=== PATIENT | male | born 1970 | race Caucasian/White ===

== ENCOUNTER 2025-10-07 19:28 | Observation (INO) ==
[2025-10-07] MEDS: ONDANSETRON INJ 2 MG/ML 2 ML VIAL IV STA (20:02)
[2025-10-07] MEDS: SODIUM CHLORIDE 0.9% 1,000 ML IV ONE (20:02)
[2025-10-07 20:07] LABS: Hematocrit (blood only) 46.5 % (42.0-52.0); Hemoglobin 16.3 g/dL (14.0-18.0); Mean Corpuscular Hemoglobin 29.7 pg (25.0-34.0); Mean Corpuscular Volume 84.9 fL (80.0-100.0); Platelet Count 364 K/uL (130-400); RDW Standard Deviation 38.8 fL (36.4-46.3); Red Blood Count 5.48 M/uL (4.70-6.10); White Blood Count 16.69 K/ul (4.8-10.8)
--- NOTE | 2025-10-07 20:26 | Emergency Department Note ---
History of Present Illness General Chief complaint: Abdominal Pain Stated complaint: ABD PAIN/MALAISE/EMESIS/TACHACARD Time Seen by Provider: 10/07/25 19:46 History of Present Illness Provider Complaint: + nausea, + vomiting, + diarrhea and + abdominal pain Onset (ago): day(s) 1 Description of Vomiting: + food contents; no blood-streaked, no bloody or no coffee grounds Description of Diarrhea: no mucousy, no tarry, no blood-streaked or no bloody (bright red) Associated Abdominal Pain: Yes Location of pain: + diffuse Maximum Pain Intensity: 6 Current Pain Intensity: 6 Quality: + cramping, + stabbing and + sharp Pain Consistency: + intermittent Relieved By: + none Exacerbated By: + vomiting Context: no possible food poisoning, no recent antibiotic use, no recent surgery/procedure, no alcohol abuse, no trauma, no NSAID use, no smoking or no marijuana use Associated symptoms: no chest pain, no cough, no diaphoresis, no fever/chills, no headaches, no dysuria, no shortness of breath or no syncope Home Medications Medication Instructions Recorded Confirmed Type dextroamphetamine sulfate 10 mg 20 - 30 mg PO DAILY 10/07/25 10/07/25 History tablet loratadine 10 mg tablet (Claritin) 10 mg PO DAILY 10/07/25 10/07/25 History multivitamin 1 tab PO DAILY 10/07/25 10/07/25 History Allergies Allergy/AdvReac Type Severity Reaction Status Date / Time No Known Allergies Allergy Verified 10/07/25 22:36 Past Med/Surg History Problem List (Updated 10/07/25 @ 23:25 by David Mccann MD) Brugada 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 (Acute) Nausea vomiting and diarrhea (Acute) Social History Smoking Status: Former smoker Preferred Language: Slovak Feels Safe at Home: Yes Physical Exam 2 Vital Signs: Vital Signs - 24 hr 10/07/25 19:32 10/07/25 19:55 10/07/25 20:14 Temperature 36.9 C Temperature Source Temporal Artery Sc an Pulse Rate 132 H 123 H Pulse Rate [Apical ] 120 H Pulse Rhythm Pulse Rhythm [Apic al] Regular Pulse Strength [Ap ical] Normal Respiratory Rate 19 24 Respiratory Effort / Characteristics Non-Labored Sponta neous Non-Labored Respiratory Depth Normal Normal Respiratory Patter n Regular Blood Pressure 147/95 H Blood Pressure [Ri ght Arm] 177/116 H Blood Pressure Lora n 112 Blood Pressure Lora n [Right Arm] 136 Blood Pressure Pos ition [Right Arm] Lying Pulse Oximetry 95 96 Oxygen Delivery Me thod Room Air Room Air Sepsis Recent Feve r Within 48 Hours No Sepsis New/Unexpla ined Change in Men justus Status N/A Sepsis Action Take n by Nursing No Action Required 10/07/25 20:14 10/07/25 22:19 Temperature Temperature Source Pulse Rate 120 H Pulse Rate [Apical ] 104 H Pulse Rhythm Regular Pulse Rhythm [Apic al] Regular Pulse Strength [Ap ical] Normal Respiratory Rate 24 19 Respiratory Effort / Characteristics Non-Labored Respiratory Depth Normal Respiratory Patter n Regular Blood Pressure Blood Pressure [Ri ght Arm] 145/84 H Blood Pressure Lora n Blood Pressure Lora n [Right Arm] 104 Blood Pressure Pos ition [Right Arm] Lying Pulse Oximetry 96 98 Oxygen Delivery Me thod Room Air Room Air Sepsis Recent Feve r Within 48 Hours Sepsis New/Unexpla ined Change in Men justus Status Sepsis Action Take n by Nursing Physical Exam: Physical Exam GENERAL: oriented to person, place, and time. appears well-developed and well- nourished. She does not appear distressed. HENT: Exam performed. -Head: Normocephalic and atraumatic. -Right Ear: External ear normal. No mastoid erythema -Left Ear: External ear normal. No mastoid erythema -Mouth/Throat: The oropharynx is clear and moist. No trismus in the jaw. No dental abscesses or uvula swelling. No oropharyngeal exudate or tonsillar abscesses. EYES: Conjunctivae and EOM are normal.Right eye exhibits no discharge. Left eye exhibits no discharge. No scleral icterus. NECK: Normal range of motion. Neck supple. No JVD present. No tracheal deviation and normal range of motion present. CV: Tachycardic rate, regular rhythm, normal heart sounds and intact distal pulses. There is no peripheral edema. Palpable radial pulses bue. PULM/CHEST: Effort normal and breath sounds normal. No respiratory distress. No stridor. no wheezes.no rales. -Chest Wall: no tenderness to palpation ABD: The abdomen is soft. Bowel sounds are normal. no distension. No mass is present. There is tenderness to palpation of the right upper quadrant and epigastric area. There is no rebound, no guarding, no Mclean's sign and no tenderness at McBurney's point. Rovsig negative MUSC/SKEL: Normal range of motion. There is no peripheral edema, tenderness or deformity. NEURO: Motor and sensation grossly intact. SKIN: Skin is warm and dry. not diaphoretic. PSYCH: normal mood and affect. Behavior is normal. Judgment and thought content normal. Course Course 1945: The patient was evaluated in room B4. A complete history and physical exam was performed Cardiac monitoring: An order was placed for continuous cardiac monitoring. The monitor shows a rate of 120 with sinus tachycardia rhythm interpreted by md 2140: Patient noemi tachycardic. White blood cell count 16.69. Otherwise unremarkable. CT abdomen pelvis shows findings diarrheal illness/enteritis. Strangely the patient's EKG demonstrated a Brugada pattern. Patient had a syncopal episode. Patient is here visiting from [place]. Patient still having a lot of nausea. Patient be admitted for IV fluids and antibiotics if needed and possible evaluation by cardiology. Patient stool culture is still pending. Administered Medications Sodium Chloride (Nss) 1,000 mls @ 125 mls/hr IV .Q8H ELIZ Stop: 10/10/25 21:59 Last Admin: 10/07/25 22:26 Dose: 125 mls/hr Documented By: ludwin Discontinued Medications Sodium Chloride (Nss) 1,000 mls @ 999 mls/hr IV .Q1H1M ONE Stop: 10/07/25 20:57 Last Infusion: 10/07/25 21:04 Dose: Infused Documented By: ludwin Admin: 10/07/25 20:02 Dose: 999 mls/hr Documented By: ludwin Ioversol (Optiray 320 100ml) 90 ml IV ONCE ONE Stop: 10/07/25 20:37 Last Admin: 10/07/25 20:36 Dose: 90 ml Documented By: DENIZ Ondansetron HCl (Ondansetron Inj 2 Mg/Ml 2 Ml Vial) 4 mg IV NOW STA Stop: 10/07/25 19:58 Last Admin: 10/07/25 20:02 Dose: 4 mg Documented By: ludwin Medical Decision Making Laboratory Data Attestation: I reviewed the patient's lab results. 10/07/25 19:52 10/07/25 19:52 Lab Results 10/07/25 10/07/25 Range/Units 19:46 19:52 WBC 16.69 H (4.8-10.8) K/ul RBC 5.48 (4.70-6.10) M/uL Hgb 16.3 (14.0-18.0) g/dL Hct 46.5 (42.0-52.0) % MCV 84.9 (80.0-100.0) fL MCH 29.7 (25.0-34.0) pg MCHC 35.1 (32.0-36.0) g/dL RDW Std Deviation 38.8 (36.4-46.3) fL RDW Coeff of Rubia 12.7 (11.5-14.5) % Plt Count 364 (130-400) K/uL MPV 8.7 L (9.4-12.4) fL Immature Gran % (Auto) 0.3 % Neut % (Auto) 91.1 % Lymph % (Auto) 4.3 % Charlton % (Auto) 3.5 % Eos % (Auto) 0.4 % Baso % (Auto) 0.4 % Neut # (Auto) 15.21 H (1.40-6.50) K/uL Lymph # (Auto) 0.72 L (1.20-3.40) K/uL Charlton # (Auto) 0.59 (0.11-0.59) K/uL Eos # (Auto) 0.06 (0.00-0.50) K/uL Baso # (Auto) 0.06 (0.00-0.20) K/uL Immature Gran # (Auto) 0.05 (0.01-0.20) K/uL PT 11.1 (9.0-12.0) Seconds INR 1.1 (0.9-1.1) APTT 30 (21-31) Seconds PTT Ratio 1.1 Sodium 137 (136-145) mmol/L Potassium 4.1 (3.5-5.1) mmol/L Chloride 104 (98-107) mmol/L Carbon Dioxide 22 (21-32) mmol/L Anion Gap 11 (3-11) BUN 16 (6-23) mg/dl Creatinine 0.87 (0.6-1.4) mg/dl Est Cr Clr Drug Dosing 119.8 ml/min eGFR 103.18 BUN/Creatinine Ratio 18.4 (10-20) Glucose 139 H (70-99(Fasting)) mg/dl Calcium 9.7 (8.6-10.3) mg/dl Total Bilirubin 1.0 (0.2-1.0) mg/dl Direct Bilirubin 0.2 (0-0.2) mg/dl AST 24 (13-39) U/L ALT 28 (7-52) U/L Alkaline Phosphatase 62 (34-104) U/L Troponin I High Sens 4.0 (0-20) pg/ml Total Protein 7.9 (6.0-8.3) gm/dl Albumin 4.6 (3.4-5.0) gm/dl Lipase 30 (11-82) U/L Urine Color Yellow Urine Appearance Clear (Clear) Urine pH 6.0 (4.5-7.5) Ur Specific Rupert 1.027 (1.000-1.030) Urine Protein Trace H (Negative) Urine Glucose (UA) Negative (Negative) Urine Ketones 2+ H (Negative) Urine Blood Negative (Negative) Urine Nitrite Negative (Negative) Urine Bilirubin Negative (Negative) Urine Urobilinogen Negative (Negative) Ur Leukocyte Esterase Negative (Negative) Urine WBC (Auto) 0-5 (0-5) /hpf Urine RBC (Auto) 0-2 (0-2) /hpf U Hyaline Cast (Auto) 0-2 (0-2) /lpf U Epithel Cells (Auto) 0-2 (0-2) /hpf Urine Bacteria (Auto) None Seen (None Seen) Urine Comment Imaging Data Attestation: I personally reviewed and interpreted this imaging study as follows: My Impression: Chest x-ray negative. Airway clear. No pneumothorax. No consolidation. No cardiomegaly or cephalization.. No free air under the diaphragm. No fractures of the skeletal structures. Radiologist's Impression: Abdomen/Pelvis CT 10/07/25 19:57 Exam(s): CT ABDOMEN + PELVIS With Contrast IV Amt: 90 ml optiray 320 EXAM: CT Abdomen and Pelvis With Intravenous Contrast CLINICAL HISTORY: Reason for exam: epigastric pain. TECHNIQUE: Axial computed tomography images of the abdomen and pelvis with intravenous contrast. CTDI is 27.57 mGy and DLP is 1551.89 mGy-cm. Automated exposure control was utilized for the study. A dose lowering technique was utilized adhering to the principles of ALARA. CONTRAST: Patient received 90 ml optiray 320 of IV contrast COMPARISON: None FINDINGS: Lung bases: Unremarkable. No mass. No consolidation. ABDOMEN: Liver: Hepatic steatosis. Gallbladder and bile ducts: Unremarkable. No calcified stones. No ductal dilation. Pancreas: Unremarkable. No mass. No ductal dilation. Spleen: Unremarkable. No splenomegaly. Adrenals: Unremarkable. No mass. Kidneys and ureters: Left renal cyst. No further follow up necessary. No hydronephrosis or obstructing ureteral stone. Stomach and bowel: Fluid and gas filled small bowel loops may represent enteritis in the appropriate clinical setting. Evaluation of the stomach is limited by underdistention. Fluid in the colon is suggestive of diarrheal state. PELVIS: Appendix: Normal appendix. Bladder: Prominence of the bladder wall is nonspecific. Please correlate with urinalysis to evaluate for cystitis. Reproductive: Mild calcifications in the prostate. ABDOMEN and PELVIS: Intraperitoneal space: Unremarkable. No free air. No significant fluid collection. Bones/joints: Degenerative changes of the spine. No acute fracture. No dislocation. Soft tissues: Unremarkable. Vasculature: Unremarkable. No abdominal aortic aneurysm. Lymph nodes: Unremarkable. No enlarged lymph nodes. IMPRESSION: 1. Fluid and gas filled small bowel loops may represent enteritis in the appropriate clinical setting. 2. Fluid in the colon is suggestive of diarrheal state. 3. Prominence of the bladder wall is nonspecific. Please correlate with urinalysis to evaluate for cystitis. Electronically signed by: Deja Salguero M.D. 10/07/25 21:22 PM Chest X-Ray 10/07/25 19:57 Exam(s): XR CXR 1 VIEW EXAM: XR Chest, 1 View CLINICAL HISTORY: Reason for exam: epigastric pain. TECHNIQUE: Frontal view of the chest. COMPARISON: No relevant prior studies available. FINDINGS: Lungs: Mild to moderate peribronchial thickening of the central bronchi. No consolidation. Pleural space: Unremarkable. No pneumothorax. Heart: Unremarkable. No cardiomegaly. Mediastinum: Unremarkable. Normal mediastinal contour. Bones/joints: Unremarkable. No acute fracture. IMPRESSION: Bronchitis, which may be of infectious or inflammatory etiologies. No consolidation or pleural effusion. Electronically signed by: Paz Lozano MD 10/07/25 21:20 PM ECG Data Attestation: I personally reviewed and interpreted this ECG as follows: Additional Comments: Sinus rhythm with rate of 127. MI 160 QRS [address] elevation or ST depression. Brugada pattern present. [facility] Narrative 1945: The patient was evaluated in room B4. A complete history and physical exam was performed Cardiac monitoring: An order was placed for continuous cardiac monitoring. The monitor shows a rate of 120 with sinus tachycardia rhythm interpreted by me 2140: Patient noemi tachycardic. White blood cell count 16.69. Otherwise unremarkable. CT abdomen pelvis shows findings diarrheal illness/enteritis. Strangely the patient's EKG demonstrated a Brugada pattern. Patient had a syncopal episode. Patient is here visiting from [place]. Patient still having a lot of nausea. Patient be admitted for IV fluids and antibiotics if needed and possible evaluation by cardiology. Patient stool culture is still pending. 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 multivitamin [Multiple Vitamin] Tablet 1 tab PO DAILY loratadine [Claritin] 10 mg Tablet 10 mg PO DAILY Referrals Referrals: PCP,NO [Physician] -
[2025-10-07 20:28] LABS: Alanine Aminotransferase 28.0 U/L (7-52); Albumin Level 4.6 gm/dl (3.4-5.0); Alkaline Phosphatase 62.0 U/L (34-104); Anion Gap 11.0 (3-11); Bilirubin,Total 1.0 mg/dl (0.2-1.0); Blood Urea Nitrogen 16.0 mg/dl (6-23); Calcium 9.7 mg/dl (8.6-10.3); Carbon Dioxide 22.0 mmol/L (21-32); Chloride 104.0 mmol/L (98-107); Creatinine Clr Calc Pharmacy 119.8 ml/min; Glucose 139.0 mg/dl (70-99(Fasting)); Immature Granulocytes # (auto) 0.05 K/uL (0.01-0.20); Immature Granulocytes % (auto) 0.3 %; Lipase 30.0 U/L (11-82); Potassium 4.1 mmol/L (3.5-5.1); Sodium 137.0 mmol/L (136-145); Total Protein 7.9 gm/dl (6.0-8.3)
[2025-10-07 20:36] LABS: Appearance Urine Clear (Clear); Bacteria Urine Automated None Seen (None Seen); Cast Urine Automated 0-2 /lpf (0-2); Epithelial Cell Urine Auto 0-2 /hpf (0-2); Glucose Urine UA Negative (Negative); RBC Urine Automated 0-2 /hpf (0-2); WBC Urine Automated 0-5 /hpf (0-5)
[2025-10-07] MEDS: OPTIRAY 320 100ml IV ONE (20:36)
[2025-10-07 20:40] LABS: INR 1.1 (0.9-1.1); Partial Thromboplastin Time 30 Seconds (21-31); Prothrombin Time 11.1 Seconds (9.0-12.0)
--- NOTE | 2025-10-07 21:20 | XRay Report ---
Exam(s): XR CXR 1 VIEW EXAM: XR Chest, 1 View CLINICAL HISTORY: Reason for exam: epigastric pain. TECHNIQUE: Frontal view of the chest. COMPARISON: No relevant prior studies available. FINDINGS: Lungs: Mild to moderate peribronchial thickening of the central bronchi. No consolidation. Pleural space: Unremarkable. No pneumothorax. Heart: Unremarkable. No cardiomegaly. Mediastinum: Unremarkable. Normal mediastinal contour. Bones/joints: Unremarkable. No acute fracture. IMPRESSION: Bronchitis, which may be of infectious or inflammatory etiologies. No consolidation or pleural effusion. Electronically signed by: Paz Lozano MD 10/07/25 21:20 PM
--- NOTE | 2025-10-07 21:23 | CT Scan Report ---
Exam(s): CT ABDOMEN + PELVIS With Contrast IV Amt: 90 ml optiray 320 EXAM: CT Abdomen and Pelvis With Intravenous Contrast CLINICAL HISTORY: Reason for exam: epigastric pain. TECHNIQUE: Axial computed tomography images of the abdomen and pelvis with intravenous contrast. CTDI is 27.57 mGy and DLP is 1551.89 mGy-cm. Automated exposure control was utilized for the study. A dose lowering technique was utilized adhering to the principles of ALARA. CONTRAST: Patient received 90 ml optiray 320 of IV contrast COMPARISON: None FINDINGS: Lung bases: Unremarkable. No mass. No consolidation. ABDOMEN: Liver: Hepatic steatosis. Gallbladder and bile ducts: Unremarkable. No calcified stones. No ductal dilation. Pancreas: Unremarkable. No mass. No ductal dilation. Spleen: Unremarkable. No splenomegaly. Adrenals: Unremarkable. No mass. Kidneys and ureters: Left renal cyst. No further follow up necessary. No hydronephrosis or obstructing ureteral stone. Stomach and bowel: Fluid and gas filled small bowel loops may represent enteritis in the appropriate clinical setting. Evaluation of the stomach is limited by underdistention. Fluid in the colon is suggestive of diarrheal state. PELVIS: Appendix: Normal appendix. Bladder: Prominence of the bladder wall is nonspecific. Please correlate with urinalysis to evaluate for cystitis. Reproductive: Mild calcifications in the prostate. ABDOMEN and PELVIS: Intraperitoneal space: Unremarkable. No free air. No significant fluid collection. Bones/joints: Degenerative changes of the spine. No acute fracture. No dislocation. Soft tissues: Unremarkable. Vasculature: Unremarkable. No abdominal aortic aneurysm. Lymph nodes: Unremarkable. No enlarged lymph nodes. IMPRESSION: 1. Fluid and gas filled small bowel loops may represent enteritis in the appropriate clinical setting. 2. Fluid in the colon is suggestive of diarrheal state. 3. Prominence of the bladder wall is nonspecific. Please correlate with urinalysis to evaluate for cystitis. Electronically signed by: Deja Salguero M.D. 10/07/25 21:22 PM
[2025-10-07] MEDS: SODIUM CHLORIDE 0.9% 1,000 ML IV SCH (22:26)
--- NOTE | 2025-10-07 23:56 | History & Physical Report ---
Date of Service October 07, 2025 Assessment & Plan (1) Brugada 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: Plan: 55-year-old male who is from [place] visiting [place] for daughter's graduation with past medical history significant for ADHD comes because of nausea vomiting and abdominal pain. Patient states since morning started to have a lot of nausea and vomiting which progressively got worse and was having significant abdominal pain which prompted him to come to the ER. He had a couple of episode of small amounts of diarrhea. Currently abdominal pain is improving. Denies any fevers. No chest pain or shortness of breath. Has some headache. No dizziness. No runny nose or sore throat. No cough. Micturating okay. Blood pressure somewhat high in the ER. Patient says usually his blood pressure is in 130/80 range. Currently resting comfortably. Brugada pattern on ECG Asymptomatic Troponin negative Electrolytes okay Will monitor on telemetry Will follow repeat labs and troponin Echocardiogram Consult cardio for further recommendations Nausea vomiting diarrhea CT scan showing enteritis N.p.o. for now IV fluids Antiemetics as needed Bronchitis chest x-ray Will monitor consider Doxycycline ADHD On Adderall DVT prophylaxis SCDs for now Disposition Telemetry Full code History of Present Illness Chief Complaint: Nausea vomiting and abdominal pain Primary Care Provider: MAINE WOLF 55-year-old male who is from [place] visiting [employer] for daughter's graduation with past medical history significant for ADHD comes because of nausea vomiting and abdominal pain. Patient states since morning started to have a lot of nausea and vomiting which progressively got worse and was having significant abdominal pain which prompted him to come to the ER. He had a couple of episode of small amounts of diarrhea. Currently abdominal pain is improving. Denies any fevers. No chest pain or shortness of breath. Has some headache. No dizziness. No runny nose or sore throat. No cough. Micturating okay. Blood pressure somewhat high in the ER. Patient says usually his blood pressure is in 130/80 range. Currently resting comfortably. Past medical history. As mentioned above. Past surgical history. Right distal biceps tendon repair Social history. Quit smoking 2003. Smoked 1 to 2 packs a day for 18 years. Currently no alcohol use. Sometimes uses Gummies. Family history. Diabetes in the family. Grandfather had colon cancer. Aunt had glioblastoma. Father had liver cancer and Alzheimer's dementia. Allergies Allergy/AdvReac Type Severity Reaction Status Date / Time No Known Allergies Allergy Verified 10/07/25 22:36 Home Medications Medication Instructions Recorded Confirmed Type dextroamphetamine sulfate 10 mg 20 - 30 mg PO DAILY 10/07/25 10/07/25 History tablet loratadine 10 mg tablet (Claritin) 10 mg PO DAILY 10/07/25 10/07/25 History multivitamin 1 tab PO DAILY 10/07/25 10/07/25 History Past Med/Surg History Problem List (Updated 10/07/25 @ 23:25 by David Mccann MD) Brugada 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 (Acute) Nausea vomiting and diarrhea (Acute) Social History Smoking Status: Former smoker Hx Alcohol Use: No Hx Substance Use: Yes Substance Use Type Other:: "THC gummy" Preferred Language: [place] Korean 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 ENT- oropharynx clear Neck- supple, no JVD. Lungs- clear to auscultation no wheezing or crackles Heart- regular rhythm; no murmur, no gallop. Abdomen- normal bowel sounds, soft, nontender, no distension Extremities- no pretibial edema, no erythema seen Neuro- alert, oriented PERRL, no facial palsy; no dysarthria; moves extremities Results & Data Results & Data Vital Signs (Past 12 Hours) Vital Signs Temp Pulse Pulse Resp BP BP Pulse Ox 10/07/25 22:19 104 H 19 145/84 H 98 10/07/25 20:14 120 H 24 96 10/07/25 20:14 120 H 24 177/116 H 96 10/07/25 19:55 123 H 10/07/25 19:32 36.9 C 132 H 19 147/95 H 95 O2 Del Method 10/07/25 22:19 Room Air 10/07/25 20:14 Room Air 10/07/25 20:14 Room Air 10/07/25 19:55 10/07/25 19:32 Room Air Diagnostic Findings Laboratory Results WBC 16.69 K/ul (4.8-10.8) H 10/07/25 19:52 RBC 5.48 M/uL (4.70-6.10) 10/07/25 19:52 Hgb 16.3 g/dL (14.0-18.0) 10/07/25 19:52 Hct 46.5 % (42.0-52.0) 10/07/25 19:52 MCV 84.9 fL (80.0-100.0) 10/07/25 19:52 MCH 29.7 pg (25.0-34.0) 10/07/25 19:52 MCHC 35.1 g/dL (32.0-36.0) 10/07/25 19:52 RDW Std Deviation 38.8 fL (36.4-46.3) 10/07/25 19:52 RDW Coeff of Rubia 12.7 % (11.5-14.5) 10/07/25 19:52 Plt Count 364 K/uL (130-400) 10/07/25 19:52 MPV 8.7 fL (9.4-12.4) L 10/07/25 19:52 Immature Gran % (Auto) 0.3 % 10/07/25 19:52 Neut % (Auto) 91.1 % 10/07/25 19:52 Lymph % (Auto) 4.3 % 10/07/25 19:52 Robeson % (Auto) 3.5 % 10/07/25 19:52 Eos % (Auto) 0.4 % 10/07/25 19:52 Baso % (Auto) 0.4 % 10/07/25 19:52 Neut # (Auto) 15.21 K/uL (1.40-6.50) H 10/07/25 19:52 Lymph # (Auto) 0.72 K/uL (1.20-3.40) L 10/07/25 19:52 Robeson # (Auto) 0.59 K/uL (0.11-0.59) 10/07/25 19:52 Eos # (Auto) 0.06 K/uL (0.00-0.50) 10/07/25 19:52 Baso # (Auto) 0.06 K/uL (0.00-0.20) 10/07/25 19:52 Immature Gran # (Auto) 0.05 K/uL (0.01-0.20) 10/07/25 19:52 PT 11.1 Seconds (9.0-12.0) 10/07/25 19:52 INR 1.1 (0.9-1.1) 10/07/25 19:52 APTT 30 Seconds (21-31) 10/07/25 19:52 PTT Ratio 1.1 10/07/25 19:52 Sodium 137 mmol/L (136-145) 10/07/25 19:52 Potassium 4.1 mmol/L (3.5-5.1) 10/07/25 19:52 Chloride 104 mmol/L (98-107) 10/07/25 19:52 Carbon Dioxide 22 mmol/L (21-32) 10/07/25 19:52 Anion Gap 11 (3-11) 10/07/25 19:52 BUN 16 mg/dl (6-23) 10/07/25 19:52 Creatinine 0.87 mg/dl (0.6-1.4) 10/07/25 19:52 Est Cr Clr Drug Dosing 119.8 ml/min 10/07/25 19:52 eGFR 103.18 10/07/25 19:52 BUN/Creatinine Ratio 18.4 (10-20) 10/07/25 19:52 Glucose 139 mg/dl (70-99(Fasting)) H 10/07/25 19:52 Calcium 9.7 mg/dl (8.6-10.3) 10/07/25 19:52 Total Bilirubin 1.0 mg/dl (0.2-1.0) 10/07/25 19:52 Direct Bilirubin 0.2 mg/dl (0-0.2) 10/07/25 19:52 AST 24 U/L (13-39) 10/07/25 19:52 ALT 28 U/L (7-52) 10/07/25 19:52 Alkaline Phosphatase 62 U/L (34-104) 10/07/25 19:52 Troponin I High Sens 4.0 pg/ml (0-20) 10/07/25 19:52 Total Protein 7.9 gm/dl (6.0-8.3) 10/07/25 19:52 Albumin 4.6 gm/dl (3.4-5.0) 10/07/25 19:52 Lipase 30 U/L (11-82) 10/07/25 19:52 Urine Color Yellow 10/07/25 19:46 Urine Appearance Clear (Clear) 10/07/25 19:46 Urine pH 6.0 (4.5-7.5) 10/07/25 19:46 Ur Specific Gaines 1.027 (1.000-1.030) 10/07/25 19:46 Urine Protein Trace (Negative) H 10/07/25 19:46 Urine Glucose (UA) Negative (Negative) 10/07/25 19:46 Urine Ketones 2+ (Negative) H 10/07/25 19:46 Urine Blood Negative (Negative) 10/07/25 19:46 Urine Nitrite Negative (Negative) 10/07/25 19:46 Urine Bilirubin Negative (Negative) 10/07/25 19:46 Urine Urobilinogen Negative (Negative) 10/07/25 19:46 Ur Leukocyte Esterase Negative (Negative) 10/07/25 19:46 Urine WBC (Auto) 0-5 /hpf (0-5) 10/07/25 19:46 Urine RBC (Auto) 0-2 /hpf (0-2) 10/07/25 19:46 U Hyaline Cast (Auto) 0-2 /lpf (0-2) 10/07/25 19:46 U Epithel Cells (Auto) 0-2 /hpf (0-2) 10/07/25 19:46 Urine Bacteria (Auto) None Seen (None Seen) 10/07/25 19:46 Urine Comment 10/07/25 19:46 Impressions Abdomen/Pelvis CT 10/07/25 19:57 Exam(s): CT ABDOMEN + PELVIS With Contrast IV Amt: 90 ml optiray 320 EXAM: CT Abdomen and Pelvis With Intravenous Contrast CLINICAL HISTORY: Reason for exam: epigastric pain. TECHNIQUE: Axial computed tomography images of the abdomen and pelvis with intravenous contrast. CTDI is 27.57 mGy and DLP is 1551.89 mGy-cm. Automated exposure control was utilized for the study. A dose lowering technique was utilized adhering to the principles of ALARA. CONTRAST: Patient received 90 ml optiray 320 of IV contrast COMPARISON: None FINDINGS: Lung bases: Unremarkable. No mass. No consolidation. ABDOMEN: Liver: Hepatic steatosis. Gallbladder and bile ducts: Unremarkable. No calcified stones. No ductal dilation. Pancreas: Unremarkable. No mass. No ductal dilation. Spleen: Unremarkable. No splenomegaly. Adrenals: Unremarkable. No mass. Kidneys and ureters: Left renal cyst. No further follow up necessary. No hydronephrosis or obstructing ureteral stone. Stomach and bowel: Fluid and gas filled small bowel loops may represent enteritis in the appropriate clinical setting. Evaluation of the stomach is limited by underdistention. Fluid in the colon is suggestive of diarrheal state. PELVIS: Appendix: Normal appendix. Bladder: Prominence of the bladder wall is nonspecific. Please correlate with urinalysis to evaluate for cystitis. Reproductive: Mild calcifications in the prostate. ABDOMEN and PELVIS: Intraperitoneal space: Unremarkable. No free air. No significant fluid collection. Bones/joints: Degenerative changes of the spine. No acute fracture. No dislocation. Soft tissues: Unremarkable. Vasculature: Unremarkable. No abdominal aortic aneurysm. Lymph nodes: Unremarkable. No enlarged lymph nodes. IMPRESSION: 1. Fluid and gas filled small bowel loops may represent enteritis in the appropriate clinical setting. 2. Fluid in the colon is suggestive of diarrheal state. 3. Prominence of the bladder wall is nonspecific. Please correlate with urinalysis to evaluate for cystitis. Electronically signed by: Deja Salguero M.D. 10/07/25 21:22 PM Chest X-Ray 10/07/25 19:57 Exam(s): XR CXR 1 VIEW EXAM: XR Chest, 1 View CLINICAL HISTORY: Reason for exam: epigastric pain. TECHNIQUE: Frontal view of the chest. COMPARISON: No relevant prior studies available. FINDINGS: Lungs: Mild to moderate peribronchial thickening of the central bronchi. No consolidation. Pleural space: Unremarkable. No pneumothorax. Heart: Unremarkable. No cardiomegaly. Mediastinum: Unremarkable. Normal mediastinal contour. Bones/joints: Unremarkable. No acute fracture. IMPRESSION: Bronchitis, which may be of infectious or inflammatory etiologies. No consolidation or pleural effusion. Electronically signed by: Paz Lozano MD 10/07/25 21:20 PM ECG Additional Comments: ECG. Sinus tachycardia 127. Brugada pattern type I. QTc 447 Code Status & VTE Plan VTE Prophylaxis Plan VTE Prophylaxis will be ordered: Yes
[2025-10-08] MEDS ORDERED: NITROGLYCERIN SL 0.4 MG/TAB TAB SL PRN (01:13)
[2025-10-08] MEDS: LACTATED RINGER'S 1,000 ML IV SCH (02:11)
[2025-10-08 06:26] LABS: Hematocrit (blood only) 41.4 % (42.0-52.0); Hemoglobin 14.6 g/dL (14.0-18.0); Immature Granulocytes # (auto) 0.04 K/uL (0.01-0.20); Immature Granulocytes % (auto) 0.4 %; Mean Corpuscular Hemoglobin 30.3 pg (25.0-34.0); Mean Corpuscular Volume 85.9 fL (80.0-100.0); Platelet Count 330 K/uL (130-400); RDW Standard Deviation 39.6 fL (36.4-46.3); Red Blood Count 4.82 M/uL (4.70-6.10); White Blood Count 9.54 K/ul (4.8-10.8)
[2025-10-08 06:43] LABS: Anion Gap 7.0 (3-11); Blood Urea Nitrogen 14.0 mg/dl (6-23); Calcium 8.8 mg/dl (8.6-10.3); Carbon Dioxide 26.0 mmol/L (21-32); Chloride 106.0 mmol/L (98-107); Creatinine Clr Calc Pharmacy 133.8 ml/min; Glucose 109.0 mg/dl (70-99(Fasting)); Magnesium 1.8 mg/dl (1.7-2.4); Potassium 3.7 mmol/L (3.5-5.1); Sodium 139.0 mmol/L (136-145)
--- NOTE | 2025-10-08 08:15 | Cardiology Consultation ---
Date of Consultation October 08, 2025 Assessment & Plan (1) Gastroenteritis: (2) Norovirus: (3) Brugada 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: Plan Patient is a 55-year-old male without cardiac history admitted to [facility] with nausea vomiting diarrhea diagnosed with Gastroenteritis and tested positive for norovirus. On admission his EKG demonstrated sinus tach with possible Brugada pattern type I. No prior cardiac history. No EKG's on file for comparison, but per patient - he has had normal EKG's yearly with his ADHD treatment. No history of arrhythmias, syncope or near syncope. No family history of SCD. Since admission, HS troponin negative x2. Echo with normal LVEF, no wall motion abnormalities, Mild AI. Telemetry without arrhythmias. Repeat EKG this morning demonstrating NSR, normal EKG. No Brugada pattern. Abnormal EKG likely in setting of acute illness and electrolyte disturbances. Low magnesium noted. Supplement 2 grams today. Consider outpatient site monitor and repeat EKG when he returns home to [place]. Treatment for norovirus/enteritis per hospitalist. No further cardiac testing warranted at this time. Case discussed with Dr. Epstein. I spent a total of 60 minutes on the date of service in preparation, delivery, and documentation of the care provided to this patient, excluding any time spent in the performance of separately billed services. Katherine Bhat PA-C Department of Cardiology, [facility] This chart was completed in part utilizing Speech Voice Recognition Software. Grammatical errors, random word insertions, pronoun errors, and incomplete sentences are an occasional consequence of this system due to software li mitations, ambient noise, and hardware issues. Any formal questions or concerns about the content, text, or information contained within the body of this dictation should be directly addressed to the provider for clarification. Supervising Physician Co-Signing Physician Notes Patient seen and examined. Past medical history, surgical history, social history and family history have been reviewed. The medical record and all the above studies have been reviewed. Case DW RADHA including management. Acute Gastroenteritis Norovirus Abnormal EKG - asymptomatic - Transient atrial flutter with no recurrence Recommendations: correct and f/u electrolytes f/u renal function Patient's [id number] score is 0 management of viral syndrome ASA 81mg po daily F/U with cardiology when back in [place] with OP event recorder as indicated increase fluid intake DVT prophylaxis History of Present Illness Reason for Consultation: Abnormal EKG Requesting Physician: Allyn Hospitalist Attending Physician: Dr. Epstein History of Present Illness Patient is a 55 year old male who presented to [facility] with complaints of severe abdominal pain, nausea, vomiting, and diarrhea. Abd/Pelvic CT demonstrated findings consistent with gastro enteritis. + for norovirus. EKG on admission 10/07 demonstrated Sinus tachycardia with possible Type I Brugada pattern. Cardiology consulted for further evaluation. HS troponin negative x 2. Repeat EKG this morning demonstrating NSR, normal EKG He is from [place]. Visiting [facility] for daughter's graduation at [facility] No prior cardiac history. No family history of SCD or arrhythmias. He is a nurse. Only home medication is Dextroamphetamine for ADHD. He reports having EKG's yearly and these are always "normal". He denies prior history of arrhythmias, palpitations, or tachypalpitations. At time of consult, patient feeling better. Abd pain improving. No recurrent nausea or vomiting. Diarrhea improving. Tolerating liquid diet. Allergies Allergy/AdvReac Type Severity Reaction Status Date / Time No Known Allergies Allergy Verified 10/07/25 22:36 Home Medications Medication Instructions Recorded Confirmed Type dextroamphetamine sulfate 10 mg 10 mg PO BID 10/07/25 10/08/25 History tablet loratadine 10 mg tablet (Claritin) 10 mg PO DAILY 10/07/25 10/07/25 History multivitamin 1 tab PO DAILY 10/07/25 10/07/25 History Patient History Social History Smoking Status: Former smoker Hx Alcohol Use: No Hx Substance Use: Yes Substance Use Type Other:: "THC gummy" Preferred Language: Georgian Waitress Required: No Beliefs That Will Affect Care: None Current Living Situation: Spouse Feels Safe at Home: Yes Review of Systems Review of Systems: All systems reviewed & are unremarkable except as noted in HPI & below Physical Exam Constitutional: WD/WN, vitals as above no acute distress Neck: trachea midline, no thyromegaly Respiratory: normal respiratory effort, lungs clear to auscultation Cardiovascular: Rate/Rhythm: regular rate and regular rhythm Heart Sounds: normal S1 and normal S2; no murmur Vessels: no JVD Extremities: no edema Gastrointestinal (Abdomen): normal bowel sounds, soft, nontender, no hepatosplenomegaly Neurologic: PERRL, EOMI, accommodation nl, no face palsy, no dysarthria Results & Data Vital Signs (Past 12 Hours) Vital Signs Temp Pulse Pulse Pulse Resp BP BP 10/08/25 07:38 36.9 C 82 20 152/81 H 10/08/25 03:15 36.9 C 100 H 18 139/91 10/08/25 01:14 10/08/25 01:14 37.1 C 105 H 16 136/78 10/08/25 01:13 10/08/25 01:10 111 H 10/08/25 00:54 106 H 20 153/109 H 10/08/25 00:05 108 H 10/08/25 00:00 111 H 21 10/07/25 22:19 104 H 19 10/07/25 20:14 120 H 24 10/07/25 20:14 120 H 24 BP Pulse Ox O2 Del Method O2 Del Method 10/08/25 07:38 96 Room Air 10/08/25 03:15 97 Room Air 10/08/25 01:14 Room Air 10/08/25 01:14 96 Room Air 10/08/25 01:13 Room Air 10/08/25 01:10 10/08/25 00:54 99 Room Air 10/08/25 00:05 10/08/25 00:00 153/109 H 99 Room Air 10/07/25 22:19 145/84 H 98 Room Air 10/07/25 20:14 96 Room Air 10/07/25 20:14 177/116 H 96 Room Air Laboratory Results Cardiac Enzymes 10/07/25 10/08/25 Range/Units 19:52 05:56 AST 24 (13-39) U/L Troponin I High Sens 4.0 5.0 (0-20) pg/ml Coagulation 10/07/25 Range/Units 19:52 PT 11.1 (9.0-12.0) Seconds APTT 30 (21-31) Seconds CBC 10/07/25 10/08/25 Range/Units 19:52 05:56 WBC 16.69 H 9.54 (4.8-10.8) K/ul RBC 5.48 4.82 (4.70-6.10) M/uL Hgb 16.3 14.6 (14.0-18.0) g/dL Hct 46.5 41.4 L (42.0-52.0) % Plt Count 364 330 (130-400) K/uL Neut # (Auto) 15.21 H 7.94 H (1.40-6.50) K/uL Lymph # (Auto) 0.72 L 0.82 L (1.20-3.40) K/uL [facility] # (Auto) 0.59 0.70 H (0.11-0.59) K/uL Eos # (Auto) 0.06 0.02 (0.00-0.50) K/uL Baso # (Auto) 0.06 0.02 (0.00-0.20) K/uL Comprehensive Metabolic Panel 10/07/25 10/08/25 Range/Units 19:52 05:56 Sodium 137 139 (136-145) mmol/L Potassium 4.1 3.7 (3.5-5.1) mmol/L Chloride 104 106 (98-107) mmol/L Carbon Dioxide 22 26 (21-32) mmol/L BUN 16 14 (6-23) mg/dl Creatinine 0.87 0.78 (0.6-1.4) mg/dl Glucose 139 H 109 H (70-99(Fasting)) mg/dl Calcium 9.7 8.8 (8.6-10.3) mg/dl Direct Bilirubin 0.2 (0-0.2) mg/dl AST 24 (13-39) U/L ALT 28 (7-52) U/L Alkaline Phosphatase 62 (34-104) U/L Total Protein 7.9 (6.0-8.3) gm/dl Albumin 4.6 (3.4-5.0) gm/dl Intake and Output 10/07/25 10/08/25 10/08/25 22:59 06:59 14:59 Intake Total 1000 / 1468.75 468.75 / 1468.75 Balance 1000 / 1468.75 468.75 / 1468.75 Intake: IV 1000 / 1468.75 468.75 / 1468.75 Sodium Chloride 0.9% 1,000 ml @ 1000 / 1468.75 468.75 / 1468.75 125 mls/hr IV .Q8H [facility] Rx#: [id number] Other: Other Intake Source npo # Unmeasured Voids 1 Weight 109.6 kg 109.8 kg Weight Measurement Method Chair Scale Built in [facility] Diagnostic Findings Telemetry reviewed: NSR in the 80-90's. No arrhythmias Echo report reviewed from this morning 10/08/25: LV systolic function is normal with ejection fraction 60 to 65%. Grade 1 diastolic dysfunction. Mild AI Mild pulmonic valvular regurgitation. EKG reviewed from admission: Sinus tachycardia Possible Type I Brugada No prior EKG's for comparison Repeat EKG reviewed from this morning, 10/08: NSR, Normal EKG Abdomen/Pelvis CT 10/07/25 19:57 Exam(s): CT ABDOMEN + PELVIS With Contrast IV Amt: 90 ml optiray 320 EXAM: CT Abdomen and Pelvis With Intravenous Contrast CLINICAL HISTORY: Reason for exam: epigastric pain. TECHNIQUE: Axial computed tomography images of the abdomen and pelvis with intravenous contrast. CTDI is 27.57 mGy and DLP is 1551.89 mGy-cm. Automated exposure control was utilized for the study. A dose lowering technique was utilized adhering to the principles of ALARA. CONTRAST: Patient received 90 ml optiray 320 of IV contrast COMPARISON: None FINDINGS: Lung bases: Unremarkable. No mass. No consolidation. ABDOMEN: Liver: Hepatic steatosis. Gallbladder and bile ducts: Unremarkable. No calcified stones. No ductal dilation. Pancreas: Unremarkable. No mass. No ductal dilation. Spleen: Unremarkable. No splenomegaly. Adrenals: Unremarkable. No mass. Kidneys and ureters: Left renal cyst. No further follow up necessary. No hydronephrosis or obstructing ureteral stone. Stomach and bowel: Fluid and gas filled small bowel loops may represent enteritis in the appropriate clinical setting. Evaluation of the stomach is limited by underdistention. Fluid in the colon is suggestive of diarrheal state. PELVIS: Appendix: Normal appendix. Bladder: Prominence of the bladder wall is nonspecific. Please correlate with urinalysis to evaluate for cystitis. Reproductive: Mild calcifications in the prostate. ABDOMEN and PELVIS: Intraperitoneal space: Unremarkable. No free air. No significant fluid collection. Bones/joints: Degenerative changes of the spine. No acute fracture. No dislocation. Soft tissues: Unremarkable. Vasculature: Unremarkable. No abdominal aortic aneurysm. Lymph nodes: Unremarkable. No enlarged lymph nodes. IMPRESSION: 1. Fluid and gas filled small bowel loops may represent enteritis in the appropriate clinical setting. 2. Fluid in the colon is suggestive of diarrheal state. 3. Prominence of the bladder wall is nonspecific. Please correlate with urinalysis to evaluate for cystitis. Electronically signed by: Deja Salguero M.D. 10/07/25 21:22 PM Chest X-Ray 10/07/25 19:57 Exam(s): XR CXR 1 VIEW EXAM: XR Chest, 1 View CLINICAL HISTORY: Reason for exam: epigastric pain. TECHNIQUE: Frontal view of the chest. COMPARISON: No relevant prior studies available. FINDINGS: Lungs: Mild to moderate peribronchial thickening of the central bronchi. No consolidation. Pleural space: Unremarkable. No pneumothorax. Heart: Unremarkable. No cardiomegaly. Mediastinum: Unremarkable. Normal mediastinal contour. Bones/joints: Unremarkable. No acute fracture. IMPRESSION: Bronchitis, which may be of infectious or inflammatory etiologies. No consolidation or pleural effusion. Electronically signed by: Paz Lozano MD 10/07/25 21:20 PM Medications Administered Current Inpatient Medications Lactated Ringer's (Lr) 1,000 mls @ 125 mls/hr IV .Q8H [facility] Stop: 10/08/25 17:12 Last Admin: 10/08/25 02:11 Dose: 125 mls/hr Promethazine HCl (Phenergan) 12.5 mg in 50.5 mls @ 202 mls/hr IV Q6H PRN PRN Reason: Nausea And Vomiting Stop: 11/07/25 01:12 Loratadine (Loratadine 10 Mg Tab) 10 mg PO DAILY [facility] Stop: 11/07/25 08:59 Multivitamins (Multivitamin Tab) 1 tab PO DAILY [facility] Stop: 11/07/25 08:59 Nitroglycerin (Nitroglycerin Sl 0.4 Mg/Tab Tab) 0.4 mg SL Q5M PRN PRN Reason: Chest Pain Stop: 11/07/25 01:12 PG Care Time/CCT Total # of Minutes Spent Total Time Spent with Patient: Total time spent is greater than 50% in coordination of care (as documented) at patient's floor/unit and/or counseling patient: 60 minutes Coding Level of Care Code 74453 IN/OBS CONSULT LVL 5,80M Diagnoses Gastroenteritis K52.9 Norovirus A08.11 Brugada 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 I49.8
--- NOTE | 2025-10-08 08:33 | XCELERA ---
[id number]
[2025-10-08] MEDS: LORATADINE 10 MG TAB PO SCH (08:48)
[2025-10-08] MEDS: MULTIVITAMIN TAB PO SCH (08:48)
--- NOTE | 2025-10-08 09:51 | Hospitalist Progress Note ---
Date of Service October 08, 2025 Assessment & Plan (1) Gastroenteritis: (2) Norovirus: (3) Nausea vomiting and diarrhea: (4) Brugada 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: Plan 55-year-old male who is from [place] visiting [place] for daughter's graduation with [facility] ADHD comes because of nausea vomiting and abdominal pain. Norovirus infection Gastroenteritis CT abd and pelvis noted enteritis Leukocytosis on admission 16K resolved. Now 9.5K this AM Stool PCR +Norovirus Continue IVF Antiemetics prn Advance diet as tolerated Brugada pattern on ECG on admission Asymptomatic Troponin negative TTE noted EF 60-65%, Grade I DD, mild AR, mild [place] No old EKG to compare as [place] EKG this AM showed NSR Cardiology eval noted. No further eval at this time Bronchitis noted on chest x-ray Monitor ADHD On Adderall DVT prophylaxis - SCDs for now Full code I spent a total of 50 minutes coordinating, documenting and providing care for this patient excluding time spent in performance of separately billed services Admission and Anticipated Discharge Date Admission Date: October 07, 2025 Subjective Patient seen and examined Reports nausea and vomiting have resolved Abd pain is improved. Diarrhea resolving Reports occasional mild cough, not new Denied SOB, rhinorrhea, congestion, chest pain Physical Exam Constitutional: + well hydrated; no acute distress Eyes: PERRL, conjunctivae normal, anicteric sclerae ENMT: external ear and nose normal, oropharynx normal Respiratory: normal respiratory effort, lungs clear to auscultation Cardiovascular: RRR, no murmur, no edema Gastrointestinal (Abdomen): normal bowel sounds, soft, nontender, no hepatosplenomegaly Musculoskeletal: No pedal edema Neurologic: PERRL, EOMI, accommodation nl, no face palsy, no dysarthria Psychiatric: A+Ox3, euthymic affect Results & Data Results & Data Vital Signs (Past 12 Hours) Vital Signs Temp Pulse Pulse Pulse Resp BP BP 10/08/25 07:38 36.9 C 82 20 152/81 H 10/08/25 07:07 90 10/08/25 03:15 36.9 C 100 H 18 139/91 10/08/25 01:14 10/08/25 01:14 37.1 C 105 H 16 136/78 10/08/25 01:13 10/08/25 01:10 111 H 10/08/25 00:54 106 H 20 153/109 H 10/08/25 00:05 108 H 10/08/25 00:00 111 H 21 10/07/25 22:19 104 H 19 BP Pulse Ox O2 Del Method O2 Del Method 10/08/25 07:38 96 Room Air 10/08/25 07:07 10/08/25 03:15 97 Room Air 10/08/25 01:14 Room Air 10/08/25 01:14 96 Room Air 10/08/25 01:13 Room Air 10/08/25 01:10 10/08/25 00:54 99 Room Air 10/08/25 00:05 10/08/25 00:00 153/109 H 99 Room Air 10/07/25 22:19 145/84 H 98 Room Air Laboratory Results Abnormal lab results 10/07/25 10/07/25 10/08/25 Range/Units 19:46 19:52 05:56 WBC 16.69 H (4.8-10.8) K/ul Hct 41.4 L (42.0-52.0) % MPV 8.7 L 8.7 L (9.4-12.4) fL Neut # (Auto) 15.21 H 7.94 H (1.40-6.50) K/uL Lymph # (Auto) 0.72 L 0.82 L (1.20-3.40) K/uL [place] # (Auto) 0.70 H (0.11-0.59) K/uL Glucose 139 H 109 H (70-99(Fasting)) mg/dl Urine Protein Trace H (Negative) Urine Ketones 2+ H (Negative) Stl Norovirus GI/GII PCR (NotDetected) 10/08/25 Range/Units 08:35 WBC (4.8-10.8) K/ul Hct (42.0-52.0) % MPV (9.4-12.4) fL Neut # (Auto) (1.40-6.50) K/uL Lymph # (Auto) (1.20-3.40) K/uL [place]haw # (Auto) (0.11-0.59) K/uL Glucose (70-99(Fasting)) mg/dl Urine Protein (Negative) Urine Ketones (Negative) Stl Norovirus GI/GII PCR DETECTED A* (NotDetected)
[2025-10-08 10:15] LABS: Adenovirus F 40/41 PCR Not Detected (NotDetected); Campylobacter PCR Not Detected (NotDetected); Enteroaggregative E.coli(EAEC) Not Detected (NotDetected); Shiga-like Toxin E.coli (STEC) Not Detected (NotDetected); Vibrio species PCR Not Detected (NotDetected)
[2025-10-08 10:41] LABS: Cdiff Toxin B Gene (2yr or >) Negative Cdiff Gene (Neg)
[2025-10-08] MEDS: DEXTROAMPHETAMINE/AMPHETAMINE IR 20 MG TAB PO SCH ×2 (10:41→17:12)
[2025-10-08] MEDS: MAGNESIUM SULFATE / D5W 1 GM/100 ML BAG IV SCH (11:35)
--- NOTE | 2025-10-08 14:28 | Electrocardiogram Report ---
Test Reason : Blood Pressure : */* mmHG Vent. Rate : 89 BPM Atrial Rate : 89 BPM P-R Int : 142 ms QRS Dur : 98 ms QT Int : 358 ms P-R-T Axes : 54 27 56 degrees QTcB Int : 435 ms Normal sinus rhythm Normal ECG When compared with ECG of 07-Oct-2025 19:44, (unconfirmed) No significant change was found Confirmed by Jimi Underwood ([id number]) on 10/08/2025 2:28:17 PM Referred By: REFERRED SELF Confirmed By: Jimi Underwood
[2025-10-08] MEDS: PROMETHAZINE 12.5 MG/50.5 ML BAG IV PRN (16:40)
[2025-10-08] MEDS ORDERED: Nursing to Pharmacy Communication SCH (17:00)
[2025-10-08] MEDS: ACETAMINOPHEN 325 MG TAB PO PRN (17:12)
[2025-10-09 07:11] LABS: Anion Gap 8.0 (3-11); Blood Urea Nitrogen 12.0 mg/dl (6-23); Calcium 8.5 mg/dl (8.6-10.3); Carbon Dioxide 24.0 mmol/L (21-32); Chloride 107.0 mmol/L (98-107); Creatinine Clr Calc Pharmacy 133.6 ml/min; Glucose 92.0 mg/dl (70-99(Fasting)); Magnesium 2.3 mg/dl (1.7-2.4); Potassium 3.9 mmol/L (3.5-5.1); Sodium 139.0 mmol/L (136-145)
[2025-10-09 07:19] VITALS: RESP 22; TEMP 97.3; O2SAT 97
[2025-10-09] MEDS: ASPIRIN 81 MG ECTAB PO SCH (09:59)
--- NOTE | 2025-10-09 10:23 | Discharge Summary ---
Date of Service October 09, 2025 Admission HPI Per Admitting Provider 55-year-old male who is from [place] visiting [place] for daughter's graduation with past medical history significant for ADHD comes because of nausea vomiting and abdominal pain. Patient states since morning started to have a lot of nausea and vomiting which progressively got worse and was having significant abdominal pain which prompted him to come to the ER. He had a couple of episode of small amounts of diarrhea. Currently abdominal pain is improving. Denies any fevers. No chest pain or shortness of breath. Has some headache. No dizziness. No runny nose or sore throat. No cough. Micturating okay. Blood pressure somewhat high in the ER. Patient says usually his blood pressure is in 130/80 range. Currently resting comfortably. Past medical history. As mentioned above. Past surgical history. Right distal biceps tendon repair Social history. Quit smoking 2003. Smoked 1 to 2 packs a day for 18 years. Currently no alcohol use. Sometimes uses Gummies. Family history. Diabetes in the family. Grandfather had colon cancer. Aunt had glioblastoma. Father had liver cancer and Alzheimer's dementia. Admission Exam Per Admitting Provider General-Not in distress Head- atraumatic Eyes- PERRL. ENT- oropharynx clear Neck- supple, no JVD. Lungs- clear to auscultation no wheezing or crackles Heart- regular rhythm; no murmur, no gallop. Abdomen- normal bowel sounds, soft, nontender, no distension Extremities- no pretibial edema, no erythema seen Neuro- alert, oriented PERRL, no facial palsy; no dysarthria; moves extremities Principal Diagnosis Norovirus infection Gastroenteritis Abnormal EKG Discharge Exam Constitutional + well hydrated; no acute distress Eyes PERRL, conjunctivae normal, anicteric sclerae ENMT external ear and nose normal, oropharynx normal Respiratory normal respiratory effort, lungs clear to auscultation Cardiovascular RRR, no murmur, no edema Gastrointestinal (Abdomen) normal bowel sounds, soft, nontender, no hepatosplenomegaly Neurologic PERRL, EOMI, accommodation nl, no face palsy, no dysarthria Psychiatric A+Ox3, euthymic affect Discharge Data Allergies Allergy/AdvReac Type Severity Reaction Status Date / Time No Known Allergies Allergy Verified 10/07/25 22:36 Consultations 10/07/25 21:40 ED Decision to Admit Stat 10/08/25 08:00 Consult Cardiology Routine Ordered Studies 10/07/25 19:57 CT abd pelvis IV con only Stat Hospital Course (1) Gastroenteritis: (2) Norovirus: (3) Nausea vomiting and diarrhea: (4) Brugada 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: Plan 55-year-old male who is from [place] visiting [place] for daughter's graduation with [employer] ADHD comes because of nausea vomiting and abdominal pain. Norovirus infection Gastroenteritis CT abd and pelvis noted enteritis Leukocytosis on admission 16K but now resolved Stool PCR +Norovirus Was managed with IVF and supportive care Nausea and vomiting have resolved No abdominal pain today Brugada pattern was noted on ECG on admission Repeat EKG showed sinus rhythm. No brugada pattern Troponin negative TTE noted EF 60-65%, Grade I DD, mild AR, mild [place] No old EKG to compare as [place] He was placed on telemetry inpatient Cardiology evaluated, noted transient Atrial fluttter with no recurrence. He was started on ASA 81mg daily per Cardiology. He reports he can get ASA 81mg and does not need prescription Today, he stated he has communicated with a Real Estate Services Administrator he will see on getting back home Patient needs Zio patch/holter monitoring. PCP/Real Estate Services Administrator can arrange this Total Time Total Time Spent Total Time Spent (In Minutes): 40 Total Time Includes: Examination of the Patient, Discharge Planning and Medication Reconciliation Discharge Plan Discharge Items Patient Disposition: Home - Self-Care Reason For Visit: GASTROENERITIS, ABNORMAL EKG Discharge Diagnosis: Norovirus infection Gastroenteritis Abnormal EKG Condition on Discharge: Good Activity: Resume your previous activity Non-emergency contact: Primary Care Provider Call non-emergency contact if: you have any medication questions and your symptoms worsen Follow-up/Referrals: Naida Chacon MD [Primary Care Provider] - Diet: Regular Addtl Attending Provider Instructions: Mr Stockton You were hospitalized and managed for the above listed diagnoses You are being discharged home Transient Atrial flutter with no recurrence was noted by Cardiology and you were started on Aspirin 81mg daily. You will need to follow up with Cardiology back home and get outpatient event monitor such as Holter or Zio patch. Please ensure follow up with your Primary Doctor. It was a pleasure taking care of you Pending Studies at Discharge: No Stand-Alone Forms: [facility], Smoking Cessation Medications and DC Order Prescriptions: New aspirin 81 mg Tablet,Delayed Release (Dr/Ec) 81 mg PO QAM Qty: 30 0RF Continued dextroamphetamine sulfate 10 mg tablet 10 mg PO BID Rx Instructions: 10/07/25 : PT REPORTS HE USUALLY TAKES TWO TABLETS DAILY, RX = THREE TABLETS DAILY. multivitamin Tablet 1 tab PO DAILY loratadine [Claritin] 10 mg Tablet 10 mg PO DAILY Discharge Orders: Discharge Order (Routine); Ordered 10/09/25 Ordered By: Diane Mejía Admission Data Admit Date/Time: 10/07/25 23:45 Attending Provider: Diane Mejía I. Admit Provider: Misael Fitzpatrick Primary Care Provider: Naida Chacon Other Providers: Misael Fitzpatrick; Sari Valderrama; Gallo Potter; Mark Strickland; Sarthak Hill; Keith Lopez; Juan F Jones; Jessi Rodriguez; Katherine Bhat; Nya Hartman; Naomi Hdz; Sari Cabrera; Joseph Crespo; Wei Parmar; Marline Diaz; Joseline Aguirre; Fe Nunez; Ty Johnson; Isaac Zapata; Edilma Strickland; Leah Ochoa; Jimi Jiménez; Stan Epstein; Tari Lewis Other Interventions: Discharge Summary Assessment (RN) Last Done: 10/09/25 10:45
[2025-10-09 10:46] VITALS: BP 133/86; PULSE 100
--- NOTE | 2025-10-09 18:48 | Electrocardiogram Report ---
Test Reason : Blood Pressure : */* mmHG Vent. Rate : 67 BPM Atrial Rate : 67 BPM P-R Int : 134 ms QRS Dur : 98 ms QT Int : 410 ms P-R-T Axes : 39 25 49 degrees QTcB Int : 433 ms Normal sinus rhythm with sinus arrhythmia Normal ECG When compared with ECG of 08-Oct-2025 05:41, No significant change was found Confirmed by Jimi Underwood ([id number]) on 10/09/2025 6:48:27 PM Referred By: REFERRED SELF Confirmed By: Jimi Underwood
--- NOTE | 2025-10-10 11:07 | Electrocardiogram Report ---
Test Reason : Blood Pressure : */* mmHG Vent. Rate : 127 BPM Atrial Rate : 127 BPM P-R Int : 160 ms QRS Dur : 94 ms QT Int : 308 ms P-R-T Axes : 54 21 60 degrees QTcB Int : 447 ms Sinus tachycardia Brugada pattern, type 1 Abnormal ECG No previous ECGs available Confirmed by Jimi Underwood ([id number]) on 10/10/2025 11:06:58 AM Referred By: REFERRED SELF Confirmed By: Jimi Underwood
== END 2025-10-09 11:38 | disposition home or self-care (01) | DRG 392 ==
LOC: ED 19:28 → INTOOBSV 23:45 → 2S 23:45